=== PATIENT | male | born 1970 | race Caucasian/White ===

== ENCOUNTER → 2020-08-14 09:01 | Outpatient (CLI) | payer OTHER, SELFPAY ==
[2015-10-30 19:56] VITALS: BMI 27.3
[2020-08-17 07:07] LABS: Barley, Whole Grain <0.10 kU/L (Class 0); Beef <0.10 kU/L (Class 0); Gluten <0.10 kU/L (Class 0); Potato, White <0.10 kU/L (Class 0)
[2020-08-17 15:59] LABS: Egg, Whole <0.10 kU/L (Class 0); Milk (Cow) <0.10 kU/L (Class 0)
== END ==
PROVIDERS: Referring Provider Otolaryngology Otolaryngology/Facial Plastic Surgery; Visit Provider Otolaryngology Otolaryngology/Facial Plastic Surgery
DX: T78.40XA Allergy, unspecified, initial encounter (principal)
CPT/HCPCS: 36415; 86003

== ENCOUNTER 2021-06-29 09:21 | Emergency (ER) | payer OTHER, SELFPAY ==
[2021-06-29] VITALS (11 sets, daily range): BP systolic 108–147; BP diastolic 58–79; PULSE 59–87; RESP 14–22; TEMP 36.3–38.4; O2SAT 90–96; BMI 27.0
--- NOTE | 2021-06-29 09:39 | CT_ITS ---
INDICATION: Abdominal Pain EXAMINATION: CT ABDOMEN AND PELVIS WITH CONTRAST - CT Abdomen And Pelvis W/ Contrast Injection TECHNIQUE: Helically acquired images were obtained of the abdomen and pelvis following IV contrast. A radiation dose optimization technique was used for this scan. IV Contrast dosage and agent: 100 cc [id number] Oral contrast: None. COMPARISON: None. FINDINGS: Lower thorax: Consolidative groundglass opacities in the peripheries of the bilateral lower lobes and the visualized left upper lobe. Liver: Normal morphology. Normal parenchyma. No masses. Gallbladder: Normal appearance. No duct dilation. Spleen: Unremarkable. Pancreas: No discrete parenchymal masses. No duct dilation. Adrenal glands: Unremarkable. Kidneys: No cystic or solid masses. No acute findings. No hydronephrosis. GI tract: No significant bowel wall thickening or bowel dilation. Small hiatal hernia. No acute inflammatory changes. Normal appendix. Peritoneum/mesentery/retroperitoneum: No ascites or free air. No masses. No lymphadenopathy. 3.5 x 3.5 x 3.9 cm umbilical hernia containing omental fat. The neck measures 0.9 cm. There are inflammatory changes of the fat within the hernia sac. Pelvis: Bladder is unremarkable. Small right fat-containing femoral hernia. No ascites or free air. No masses. Vasculature: No acute findings. Bones/soft tissues: Mild chronic degenerative wedging of the visualized T9 and T12 vertebral bodies.. No acute findings. CT/Abdomen/Pelvis W IV Cont ONLY IMPRESSION: 1. Omental fat-containing umbilical hernia demonstrates inflammatory changes of the fat within the hernia sac concerning for strangulation. No mechanical bowel obstruction. 2. Visualized lung findings concerning for infectious/inflammatory etiology such as atypical pneumonia. Correlation with COVID status recommended. Electronically Signed: Mark Castro MD at 11:03 EST Tel , Service support ,
--- NOTE | 2021-06-29 09:41 | ED.VIS.GI ---
HPI HPI - GI History of Present Illness Chief Complaint: Abd Pain Narrative Narrative: Patient who denies significant past medical history except for umbilical hernia presents with abdominal pain, cough, and fever. He states his symptoms have been ongoing for the last 8 days or so. Started coughing with phlegm production, and had a fever as high as 100 ?F. He is not vaccinated against Covid. Although he has a known small umbilical hernia, he began having periumbilical abdominal pain. It is worse with coughing. He becomes nauseated and vomits. He denies any blood in his emesis. No problems with dysuria or hematuria. He is mildly constipated. He symptoms, mainly of fever and cough. This is in combination with the abdominal pain that he is having. He denies any chest tightness, or shortness of breath. PFSH PFSH Home Medications hydrocodone-acetaminophen 1 - 2 tab PO Q4H PRN PRN #12 tablet 10/30/15 [Rx Last Taken Unknown] naproxen 500 mg PO BID #20 tab 10/30/15 [Rx Last Taken Unknown] penicillin V potassium 500 mg PO 4X/DAY #40 tab 10/30/15 [Rx Last Taken Unknown] albuterol sulfate [Ventolin HFA] 1 - 2 puff INHALATION Q4H PRN PRN #1 ea 06/29/21 [Rx Last Taken Unknown] dexamethasone [Decadron] 6 mg PO DAILY #10 tab 06/29/21 [Rx Last Taken Unknown] Allergy/AdvReac Type Severity Reaction Status Date / Time ibuprofen Allergy Anaphylaxis Verified 06/29/21 09:22 Social History Smoking Status: Never smoker ROS ROS ED ROS Narrative Constitutional: Positive fever, no chills. HEENT: No sore throat. No neck pain. No loss of vision. No rhinorrhea. No loss of taste or smell. Cardiovascular: No chest pain. No palpitations. No pedal edema. Respiratory: Positive occasionally productive cough, no shortness of breath. Abdominal: Positive periumbilical abdominal pain. Positive nausea. Positive posttussive vomiting. Genitourinary: No dysuria. No hematuria. Musculoskeletal: No myalgias. No arthralgias. Neurologic: No headaches. No dizziness. No lightheadedness. Skin: No rash. No change in color. Psychiatric: No depression. No anxiety. EXAM Physical Exam Narrative Exam Narrative: Afebrile. Vital signs noted. HEENT: Normocephalic. Atraumatic. PERRL, EOMI. Neck soft and supple. No point tenderness or step off. Cardiovascular: Regular rate and rhythm. No murmurs, rubs, or gallops appreciated. Respiratory: No tachypnea. Lungs clear to auscultation bilaterally. Gastrointestinal: Abdomen soft, positive tenderness in periumbilical area, with normoactive bowel sounds. Noted umbilical hernia, reducible. No rebound or guarding. Neurological: Awake. Alert. Nonfocal, nonlateralizing. Skin: No rash. Normal color. No pallor. Musculoskeletal: No pedal edema. Full range of motion extremities. Const Vital Signs: 06/29/21 09:23 06/29/21 10:10 06/29/21 10:35 Temperature 97.4 F L 99.3 F H Temperature Source Temporal Oral Pulse Rate 86 83 83 Respiratory Rate 17 14 22 H Blood Pressure 118/77 108/64 120/58 L Blood Pressure Mean 90 78 78 Pulse Ox 90 92 93 Oxygen Delivery Method Room Air Room Air Nasal Cannula Oxygen Flow Rate (L/min) 3 06/29/21 11:45 06/29/21 12:12 06/29/21 13:00 Temperature 101.1 F H 99.2 F H Temperature Source Oral Oral Pulse Rate 83 83 Respiratory Rate 16 20 H Blood Pressure 137/77 H 147/79 H Blood Pressure Mean 97 101 Pulse Ox 91 92 91 Oxygen Delivery Method Nasal Cannula Nasal Cannula Nasal Cannula Oxygen Flow Rate (L/min) 2 3 3 MDM MDM MDM Narrative Medical decision making narrative: Comprehensive work-up was pursued. He was swabbed for Covid. He is Covid positive. CBC is grossly normal, white count 5.4, hemoglobin stable at 13.9. Electrolyte panel shows sodium slightly low 133, glucose appropriately elevated at 111 with a normal anion gap of 9. Urinalysis is negative. Pulse ox was 90 to 91% on room air upon arrival. He was ambulated and his pulse ox did drop into the 80s. He was placed on nasal cannula and ambulated, and remains not hypoxic. CT of the abdomen pelvis does show an omental strangulation with inflammatory changes and an umbilical hernia. I spoke with Dr. Mckeon who saw the patient in the emergency department and reduced his umbilical hernia. Patient had been given morphine and ondansetron previously. He did require another dose of ondansetron. His chest x-ray showed no acute process. However, on his CT the lung portion showed inflammatory changes and infiltrates consistent with Covid. Given his hypoxia, he was administered dexamethasone 6 mg intravenously. He does qualify for home O2. I discussed patient with social work. They have an oxygen concentrator coming from [place]. Patient will remain in the emergency department until his oxygen concentrator arrives. He will then be discharged to follow-up with his primary care physician. He was referred to the on-call physician. I will write him a prescription for oral steroids for the next week to 10 days. I will also write him for an albuterol inhaler. Return instructions were reviewed. Disposition is discharged home in stable condition. Lab Data Attestation: I reviewed the patient's lab results. Labs: Laboratory Results - last 24 hr 06/29/21 06/29/21 06/29/21 09:48 09:48 11:06 WBC 5.4 RBC 4.59 L Hgb 13.9 Hct 39.1 L MCV 85.2 MCH 30.3 MCHC 35.5 RDW Std Deviation 38.0 RDW Coeff of Maty 12.2 Plt Count 189 MPV 8.3 Immature Gran % (Auto) 0.200 Neut % (Auto) 83.6 H Lymph % (Auto) 10.5 L [place] % (Auto) 5.7 Eos % (Auto) 0.0 Baso % (Auto) 0.0 Absolute Neuts (auto) 4.5 Absolute Lymphs (auto) 0.57 L Nucleated RBC % 0 Platelet Estimate ADEQUATE RBC Morphology NORM C+C Sodium 133 L Potassium 3.7 Chloride 98 Carbon Dioxide 26.0 Anion Gap 9 BUN 14 Creatinine 0.85 Estim Creat Clear Calc 98.35 Est GFR (MDRD) Af Amer 122 Est GFR (MDRD) Non-Af 101 BUN/Creatinine Ratio 16.5 Glucose 111 H Calcium 8.2 L Total Bilirubin 0.50 AST 38 H ALT 34 Alkaline Phosphatase 62 Total Protein 7.0 Albumin 2.6 L Globulin 4.4 H Albumin/Globulin Ratio 0.6 L Lipase 137 Urine Color Yellow Urine Clarity Clear Urine pH 6.5 Ur Specific [place] 1.005 Urine Protein 15 H Urine Glucose (UA) Normal Urine Ketones 50 H Urine Occult Blood 10 H Urine Nitrite Negative Urine Bilirubin Negative Urine Urobilinogen Normal Ur Leukocyte Esterase Negative Urine RBC 0 SEEN Urine WBC 0 SEEN Ur Squamous Epith Cells 0 SEEN Urine Bacteria 0 SEEN Urine Mucus 0 SEEN Radiography Diagnostic Testing: Clinical Impression(s) from Imaging Studies Abdomen/Pelvis CT 06/29/21 09:39 IMPRESSION: 1. Omental fat-containing umbilical hernia demonstrates inflammatory changes of the fat within the hernia sac concerning for strangulation. No mechanical bowel obstruction. 2. Visualized lung findings concerning for infectious/inflammatory etiology such as atypical pneumonia. Correlation with COVID status recommended. Electronically Signed: Mark Castro MD at 11:03 EST Tel , Service support , Chest X-Ray 06/29/21 11:05 IMPRESSION: No acute pulmonary process Electronically Signed: Zen Ramires MD at 11:20 EST , Service support , Discharge Plan Triage Chief Complaint: Abd Pain ED Provider: Myles Oconnell Dx/Rx/DC Orders Clinical Impression: COVID-19, Umbilical hernia, Hypoxia Instructions: Coronavirus Disease 2019 (COVID-19): Caring for Yourself or Others, COVID-19: Lying in a Prone Position (Proning), ED Hernia (Adult) Prescriptions: New dexamethasone [Decadron] 6 mg tablet 6 mg PO DAILY Qty: 10 RF: 0 albuterol sulfate [Ventolin HFA] 90 mcg/actuation HFA aerosol inhaler 1 - 2 puff inhalation Q4H PRN PRN (Reason: Wheezing) Qty: 1 RF: 0 No Action hydrocodone-acetaminophen 1 TABLET tablet 1 - 2 tab PO Q4H PRN PRN (Reason: Pain) Qty: 12 RF: 0 penicillin V potassium 500 MG tablet 500 mg PO 4X/DAY Qty: 40 RF: 0 naproxen 500 MG tablet 500 mg PO BID Qty: 20 RF: 0 Primary Care Provider: Care Physician,No Primary Referrals: Jason Mckeon MD [STAFF PHYSICIAN] - 07/27/21 (Umbilical Hernia Repair) Ange Nelson MD [STAFF PHYSICIAN] - 07/05/21 Care Physician,No Primary [Primary Care Provider] - Disposition Disposition: Home, Self Care
[2021-06-29] MEDS: 0.9% Normal Saline 1,000 ML 1000 ML IV (09:59)
[2021-06-29] MEDS: Ondansetron 4 MG/2 ML Vial IV ×2 (10:00→14:15)
[2021-06-29] MEDS: Morphine 4 MG/ML Syringe IV (10:05)
[2021-06-29 10:08] LABS: Absolute Lymphocyte Count 0.57 X10^3/uL (0.83-4.51); Absolute Neutrophil Count 4.5 X10^3/uL (2.0-7.7); Hematocrit 39.1 % (40-54); Hemoglobin 13.9 g/dL (13.0-16.5); Lymphocyte # 0.57 X10^3/ul (0.83-4.51); Lymphocyte % 10.5 % (19-41); Mean Corp Hgb Conc 35.5 g/dL (32-36); Mean Corpuscular Hgb 30.3 pg (27.0-32.0); Mean Corpuscular Volume 85.2 fL (80-94); Mean Platelet Vol. 8.3 fl (6.2-12.0); Monocyte# 0.31 X10^3/uL; Monocyte% 5.7 % (0-10); NRBC Flagged by Analyzer 0 % (0-5); Neutrophil # 4.54 X10^3/uL (2.7-7.7); Neutrophil % 83.6 % (47-70); POSITIVE DIFFERENTIAL YES; Platelet Count 189 K/mm3 (150-450); RBC Distribution Width CV 12.2 % (11.6-14.6); Red Blood Count 4.59 M/mm3 (4.6-6.2); White Blood Count 5.4 K/mm3 (4.4-11.0)
[2021-06-29 10:09] LABS: Differential Indicated SCAN CRITERIA MET
[2021-06-29 10:23] LABS: ALB/GLOB Ratio 0.6 RATIO (0.9-2.4); AST(SGOT) 38 U/L (15-37); Alanine Aminotransfer ALT/SGPT 34 U/L (16-61); Albumin, Serum 2.6 g/dL (3.2-5.0); Alkaline Phosphatase 62 U/L (45-117); Anion Gap 9 (5-15); BUN 14 mg/dL (7-18); BUN/Creat Ratio 16.5 RATIO (10-20); Calcium,Total 8.2 mg/dL (8.5-10.1); Chloride 98 mmol/L (98-107); Creatinine, Serum 0.85 mg/dL (0.70-1.30); EST Glomerular Filtration Rate 101 mL/min (>60); Est Glom Filt Rate - Afr Amer 122 mL/min (>60); Estimated Creatinine Clearance 98.35 ml/min; Globulin 4.4 g/dL (2.2-4.2); Glucose 111 mg/dL (74-106); Lipase 137 U/L (73-393); Potassium 3.7 mmol/L (3.5-5.1); Sodium Level 133 mmol/L (136-145)
[2021-06-29 10:31] LABS: Platelet Estimate ADEQUATE (ADEQ); Red Cell Morphology NORM C+C NORMAL (NORM C&C)
--- NOTE | 2021-06-29 11:05 | RAD_ITS ---
STUDY: X-RAY CHEST REASON FOR EXAM: Male, 50 years old. Fever and cough TECHNIQUE: Single AP portable view of the chest. COMPARISON: None. FINDINGS: EKG leads overlie the chest Lungs are expanded with chronic interstitial changes, no superimposed acute pulmonary process. Normal size heart. Normal mediastinum and nelly. Normal visualized pulmonary arteries. Normal visualized aortic arch and descending thoracic aorta. Normal visualized thoracic spine. Normal visualized ribs, clavicles, and shoulders. There is no demonstrated abnormality of the visualized soft tissue structures of the upper abdomen. RAD/Chest 1 View (Portable) IMPRESSION: No acute pulmonary process Electronically Signed: Zen Ramires MD at 11:20 EST , Service support ,
[2021-06-29 11:18] LABS: Bacteria 0 SEEN /hpf (None Seen); Mucous, Urine 0 SEEN /hpf (<or=2+); Red Blood Cells-Urine 0 SEEN /hpf (0-5); Squamous Epithelial Cells - UA 0 SEEN /hpf (0-5); White Blood Cells 0 SEEN /hpf (0-5)
[2021-06-29 11:19] LABS: Color, Urine Yellow (Yellow); Glucose, Dipstick Normal (Normal); Ketone-Dipstick 50 mg/dl (Negative); Leukocyte Esterase-Dipstick Negative /ul (Negative); Nitrite-Dipstick Negative (Negative); Occult Blood-Urine 10 /ul (Negative); Protein-Dipstick 15 mg/dl (Negative); Specific Gravity, Urine 1.005 (1.002-1.030); Urine Bilirubin Dipstick Negative (Negative); Urine Clarity Clear (Clear); Urine Urobilinogen Normal (Normal); Urine pH 6.5 (5.0 - 8.0)
[2021-06-29] MEDS: dexAMETHasone 10 MG/ML Vial 6 MG IV (11:59)
--- NOTE | 2021-06-29 12:20 | CON.PCM.SX_ITS ---
Assessment & Plan Assessment/Plan (1) Umbilical hernia: QUALIFIERS: Obstruction and gangrene presence: without obstruction or gangrene Qualified Code(s): K42.9 - Umbilical hernia without obstruction or gangrene PLAN: Patient has small umbilical hernia which I was able to reduce. Due to the Covid diagnosis I recommended the patient continue to reduce his hernia manually and repair this after Covid has subsided. I would recommend returning to my office in 1 month to discuss elective surgery. If there is an emergency between now and then he would have to have emergency surgery and this would be high risk. Patient understands and is willing to proceed with this plan. Jason Mckeon MD Pager: [facility] [address] [place] [address], [address] [place] [address] Office: HPI Consult Data Date of Consult: 06/29/21 HPI Narrative HPI Narrative: GAMALIEL ROLDAN, is a 50 M who presents with pain. Patient reports a longstanding history of umbilical hernia but over the last week he has been coughing a lot more due to Covid and it has been hurting a lot more. PFSH Home Medications hydrocodone-acetaminophen 1 - 2 tab PO Q4H PRN PRN #12 tablet 10/30/15 [Rx Last Taken Unknown] naproxen 500 mg PO BID #20 tab 10/30/15 [Rx Last Taken Unknown] penicillin V potassium 500 mg PO 4X/DAY #40 tab 10/30/15 [Rx Last Taken Unknown] Allergy/AdvReac Type Severity Reaction Status Date / Time ibuprofen Allergy Anaphylaxis Verified 06/29/21 09:22 Social History Smoking Status: Never smoker ROS Constitutional Constitutional: Reports fatigue; Denies anorexia Eyes Eyes: Denies blurry vision ENT HEENT: Denies abnormal hearing Cardiovascular Cardiovascular: Reports chest pain Respiratory/Chest Respiratory/Chest: Reports cough and dyspnea Gastrointestinal Gastrointestinal: Reports abdominal pain Physical Exam Const alert and oriented x3 General Appearance: ill appearing HEENT normocephalic Eyes PERRL Resp normal respiratory effort Auscultation: diminished lung sounds Cardio Rate: regular rate GI soft to palpation Palpation: tender and hernia umbilical Lab / Micro Data Result Diagrams: 06/29/21 09:48 11/24/21 09:48 Labs: Laboratory Results - last 24 hr 06/29/21 09:48: WBC 5.4, RBC 4.59 L, Hgb 13.9, Hct 39.1 L, MCV 85.2, MCH 30.3, MCHC 35.5, RDW Std Deviation 38.0, RDW Coeff of Maty 12.2, Plt Count 189, MPV 8.3, Immature Gran % (Auto) 0.200, Neut % (Auto) 83.6 H, Lymph % (Auto) 10.5 L, [place] % (Auto) 5.7, Eos % (Auto) 0.0, Baso % (Auto) 0.0, Absolute Neuts (auto) 4.5, Absolute Lymphs (auto) 0.57 L, Nucleated RBC % 0, Platelet Estimate ADEQUATE, RBC Morphology NORM C+C 06/29/21 09:48: Sodium 133 L, Potassium 3.7, Chloride 98, Carbon Dioxide 26.0, Anion Gap 9, BUN 14, Creatinine 0.85, Estim Creat Clear Calc 98.35, Est GFR (MDRD) Af Amer 122, Est GFR (MDRD) Non-Af 101, BUN/Creatinine Ratio 16.5, Glucose 111 H, Calcium 8.2 L, Total Bilirubin 0.50, AST 38 H, ALT 34, Alkaline Phosphatase 62, Total Protein 7.0, Albumin 2.6 L, Globulin 4.4 H, Albumin/Globulin Ratio 0.6 L, Lipase 137 06/29/21 11:06: Urine Color Yellow, Urine Clarity Clear, Urine pH 6.5, Ur Specific [place] 1.005, Urine Protein 15 H, Urine Glucose (UA) Normal, Urine Ketones 50 H, Urine Occult Blood 10 H, Urine Nitrite Negative, Urine Bilirubin Negative, Urine Urobilinogen Normal, Ur Leukocyte Esterase Negative, Urine RBC 0 SEEN, Urine WBC 0 SEEN, Ur Squamous Epith Cells 0 SEEN, Urine Bacteria 0 SEEN, Urine Mucus 0 SEEN Micro: Microbiology 06/29/21 09:48 Nasal Secretion SARS-CoV-2 Antigen (Rapid) - Final SARS-CoV-2 (COVID 19) Radiology Impression Abdomen/Pelvis CT 06/29/21 09:39 IMPRESSION: 1. Omental fat-containing umbilical hernia demonstrates inflammatory changes of the fat within the hernia sac concerning for strangulation. No mechanical bowel obstruction. 2. Visualized lung findings concerning for infectious/inflammatory etiology such as atypical pneumonia. Correlation with COVID status recommended. Electronically Signed: Mark Castro MD at 11:03 EST Tel , Service support , Chest X-Ray 06/29/21 11:05 IMPRESSION: No acute pulmonary process Electronically Signed: Zen Ramires MD at 11:20 EST , Service support ,
[2021-06-29] MEDS: Acetaminophen 500 MG Tablet 1000 MG PO (12:55)
--- NOTE | 2021-06-29 13:04 | CM.ED ---
SOCIAL WORK Referral Source: Dr. Oconnell Reason for Consult: COVID Positive patient, requiring home O2 Discussed need for home O2 with physician and patient. Referral for home O2 called and faxed to [facility]. Patient requires 3L. Awaiting provider to process referral at this time. Irma Mae, SALES RECEPTIONIST, [employer]
--- NOTE | 2021-06-29 14:30 | CM.ED ---
Call to [facility] to check on status of O2. Worker reports processing referral.
--- NOTE | 2021-06-29 15:46 | CM.ED ---
Call to [facility] to check on status. Worker reports order has been processed and Giancarlo jones will arrive around 5pm. Staff updated.
--- NOTE | 2021-06-29 16:56 | ED.RN ---
educational technology coordinator brought medications from pharmacy. This RN gave medications to patients in patients room.
--- NOTE | 2021-06-29 17:50 | CM.ED ---
Call to [facility] to check on status of home O2, worker reports tech is doing a set up in [place], [place] he will be en route to ER after set up. Staff updated.
--- NOTE | 2021-06-29 18:09 | CM.ED ---
Call from lindsay Hurst who reports ETA 30 minutes. Staff updated.
--- NOTE | 2021-06-29 18:53 | CM.ED ---
Portable O2 tank delivered by [employer] at this time.
--- NOTE | 2021-06-29 19:03 | CM.ED ---
Case management notified for follow up.
--- NOTE | 2021-06-29 19:05 | ED.RN ---
patient sent home with home oxygen. patient has been educated by respiratory therapist about home pulse ox and oxygen.
--- NOTE | 2021-06-29 19:06 | ED.RN ---
patient and spouse has been informed that oxygen concentrator is being delivered to their house. instructions and phone number for more information has been left at the door. patient and spouse has been informed to call if they need further help or questions. patient and spouse have no further questions at this time.
--- NOTE | 2021-07-05 10:56 | CASEMGMT ---
[facility] ED COVID Home O2 Follow-up: This [facility] contacted pt via phone for follow-up. Pt states he is feeling better and has stopped wearing his home O2. States his PO this morning was 93% and denies any c/o SOB. Pt states he is able to take deeper breathes without severe coughing. States he has a random fever and tires easily. Discussed medications including decadron (has three pills left) and albuterol. Pt asked about getting more of the decadron. Educated pt that once he completes the remaining pills he will not need any additional. Pt states he continues to use the albuterol. Discussed follow-up. Pt states he has contacted them but do not want to see him for a couple more weeks. Pt states he feels he has a sinus infection and plans to go to an urgent care to have this addressed. Reviewed quarantine with pt stating he had a start of symptoms on 06/21/21 which would indicate today as the completion of a 14 day quarantine period. Pt asked about O2 tank refill and merchandise pickup/receiving associate of equipment. Explained process of obtaining a physician order stating he no longer is in need of the O2 and contacting [employer] to arrange for portable tanks to be replaced. Pt expressed understanding and states he has [employer]'s phone number to contact them to make needed arrangements. Pt denies any further questions or concerns at this time. Kit Ho RN CM
== END 2021-06-29 19:10 | disposition home or self-care (01) ==
PROVIDERS: Emergency Provider Emergency Medicine
DX: U07.1 COVID-19 (principal); K42.9 Umbilical hernia without obstruction or gangrene; R09.02 Hypoxemia
CPT/HCPCS: 71045; 74177; 80053; 81001; 83690; 85025; 87426; 96361; 96374; 96375; 96376; 99285; Q9967; A4216; J2405

== ENCOUNTER 2021-07-01 10:44 | Emergency (ER) | payer OTHER, SELFPAY ==
[2021-07-01 10:45] VITALS: BP 119/83; PULSE 69; RESP 18; TEMP 36.4; O2SAT 95; BMI 26.9
[2021-07-01 10:48] VITALS: BP 119/83; PULSE 69; RESP 18; TEMP 36.4; O2SAT 93
[2021-07-01 10:58] VITALS: O2SAT 93; O2SAT 95
[2021-07-01 10:59] VITALS: O2SAT 92
--- NOTE | 2021-07-01 12:20 | CM.ED ---
SW Note Referral Source: Case Find Referral Reason: No PCP SW met with patient. Patient confirmed no PCP. SW provided them with 2020 Healthcare Provider Directory. No further issues or concerns voiced. Plan: Provided PCP list Katarina JULES
--- NOTE | 2021-07-01 12:37 | EDS_ITS ---
HPI History of Present Illness Chief Complaint: Shortness of Breath Informant: patient Narrative Narrative: 50-year-old male on day 11 of COVID-19 resents to the emergency room out of concern for hypoxemia. Patient was seen in the emergency room several evenings ago and was discharged home on home oxygen. He states that he received very little instruction on how many liters he was to be wearing. His home pulse oximeter was reading in the 80s today and he came to emergency. He states he does not feel necessarily particular short of breath. He reports that he does get some dyspnea with exertion. [facility] Medical History COVID Home Medications hydrocodone-acetaminophen 1 - 2 tab PO Q4H PRN PRN #12 tablet 10/30/15 [Rx Last Taken Unknown] naproxen 500 mg PO BID #20 tab 10/30/15 [Rx Last Taken Unknown] penicillin V potassium 500 mg PO 4X/DAY #40 tab 10/30/15 [Rx Last Taken Unknown] albuterol sulfate [Ventolin HFA] 1 - 2 puff INHALATION Q4H PRN PRN #1 ea 06/29/21 [Rx Last Taken Unknown] dexamethasone [Decadron] 6 mg PO DAILY #10 tab 06/29/21 [Rx Last Taken Unknown] Allergy/AdvReac Type Severity Reaction Status Date / Time ibuprofen Allergy Anaphylaxis Verified 07/01/21 10:48 Social History (Updated 07/01/21 @ 12:[address] Kyler Dow DO) current gender identity: male Smoking Status: Never smoker ROS ROS ED Constitutional Constitutional ED: Reports chills and fever(s); Denies weight loss Eyes Eyes: Denies change in vision or diplopia ENT ENT ED: Denies ear pain, rhinorrhea or sore throat Cardiovascular Cardiovascular: Denies chest pain, orthopnea, palpitations or racing heartbeat Respiratory/Chest Respiratory/Chest: Reports cough and dyspnea; Denies orthopnea Gastrointestinal Gastrointestinal: Reports abdominal pain; Denies diarrhea, nausea or vomiting Genitourinary Genitourinary ED: Denies dysuria, hematuria or urinary frequency Musculoskeletal Musculoskeletal: Denies arthralgias or myalgias Integumentary Denies abscess or rash Neurologic Neurologic: Denies headache(s) or weakness Psychiatric Psychiatric: Denies anxiety, depression, suicidal ideation or suicidal thoughts Endocrine Endocrinology: Denies polydipsia, polyphagia or polyuria Allergic/Immunologic Allergic/Immunologic ED: Denies mouth swelling, tongue swelling or urticaria EXAM Physical Exam Const Vital Signs: 07/01/21 10:45 07/01/21 10:48 07/01/21 10:58 Temperature 97.6 F L 97.6 F L Temperature Source Temporal Temporal Pulse Rate 69 69 Respiratory Rate 18 18 Respiratory Effort Blood Pressure 119/83 H 119/83 H Blood Pressure Mean 95 95 Pulse Ox 95 93 93 Oxygen Delivery Method Nasal Cannula Nasal Cannula Nasal Cannula Oxygen Flow Rate (L/min) 2 2 07/01/21 10:59 Temperature Temperature Source Pulse Rate Respiratory Rate Respiratory Effort Non-Labored Blood Pressure Blood Pressure Mean Pulse Ox Oxygen Delivery Method Nasal Cannula Oxygen Flow Rate (L/min) 2 Positive well nourished and well developed General Appearance ED: well developed HEENT Reports normocephalic, head/scalp atraumatic, TM's clear and moist mucous membranes atraumatic Tympanic Membrane ED: Yes TM's clear Eyes PERRL and EOMs intact bilaterally Neck no lymphadenopathy, supple and no JVD Resp normal respiratory effort and clear to auscultation bilaterally Cardio regular rate, regular rhythm and no murmurs GI normal to inspection, nondistended, normoactive bowel sounds and non-tender GI Narrative: Reducible umbilical hernia Palpation: soft Back/Spine no CVA tenderness and normal ROM Extremity normal to inspection General Extremety ED: Negative for edema General Extremity: Negative for edema Neuro oriented x3 and CN's II-XII intact bilaterally Sensorium / Orientation: alert Motor Exam: strength 5/5 throughout Psych mental status grossly normal Mood & Affect: Negative for depressed or tearful Skin no rashes or lesions noted and no wounds MDM MDM MDM Narrative Medical decision making narrative: While on 2-1/2 L the patient's pulse ox on our machine is reading 93 to 94%. There are times where his home pulse oximeter reads the same and other times were reads 4 points lower. I think the patient is safe for discharge. He is already on steroids. He will continue home care. Discharge Plan Triage Chief Complaint: Shortness of Breath ED Provider: Kyler Dow Dx/Rx/DC Orders Clinical Impression: COVID-19, Umbilical hernia, Hypoxia Instructions: Coronavirus Disease 2019 (COVID-19): Caring for Yourself or Others Prescriptions: No Action hydrocodone-acetaminophen 1 TABLET tablet 1 - 2 tab PO Q4H PRN PRN (Reason: Pain) Qty: 12 RF: 0 penicillin V potassium 500 MG tablet 500 mg PO 4X/DAY Qty: 40 RF: 0 naproxen 500 MG tablet 500 mg PO BID Qty: 20 RF: 0 dexamethasone [Decadron] 6 mg tablet 6 mg PO DAILY Qty: 10 RF: 0 albuterol sulfate [Ventolin HFA] 90 mcg/actuation HFA aerosol inhaler 1 - 2 puff inhalation Q4H PRN PRN (Reason: Wheezing) Qty: 1 RF: 0 Primary Care Provider: Care Physician,No Primary Referrals: Care Physician,No Primary [Primary Care Provider] - Disposition Disposition: Home, Self Care
[2021-07-01 12:56] VITALS: BP 121/76; PULSE 79; RESP 16; O2SAT 93
== END 2021-07-01 12:56 | disposition home or self-care (01) ==
PROVIDERS: Emergency Provider Emergency Medicine
DX: U07.1 COVID-19 (principal); K42.9 Umbilical hernia without obstruction or gangrene; R09.02 Hypoxemia
CPT/HCPCS: 99282

== ENCOUNTER 2023-03-10 08:10 | Emergency (ER) | payer OTHER, SELFPAY ==
[2023-03-10 08:12] VITALS: BP 145/84; PULSE 77; RESP 18; TEMP 35.9; O2SAT 98; BMI 28.2
--- NOTE | 2023-03-10 09:51 | EX.ED.VISEXT ---
HPI History of Present Illness Chief Complaint: Bite Narrative Narrative: 52-year-old male with insect sting to the left medial thigh. He does not know what it was. It happened quickly. Unlikely to be a tick bite. Patient states that initially it swelled up and was painful. He was put on doxycycline a couple of days ago and he states that the pain is much better and the size has gone down however he noticed some redness outside the marking and came to have an evaluation. Patient's had no stomach signs or symptoms. No history of MRSA. ROS ROS ED Constitutional Constitutional ED: Denies chills, fever(s) or sweats Eyes Eyes: Denies blurry vision or change in vision ENT ENT ED: Denies ear pain or sore throat Cardiovascular Cardiovascular: Denies chest pain, palpitations or racing heartbeat Respiratory/Chest Respiratory/Chest: Denies cough, dyspnea or sputum Gastrointestinal Gastrointestinal: Denies abdominal pain, constipation, diarrhea, nausea or vomiting Genitourinary Genitourinary ED: Denies dysuria, hematuria or urinary frequency Musculoskeletal Musculoskeletal: Denies arthralgias, myalgias or neck pain Integumentary Reports rash; Denies abscess or Abrasions Neurologic Neurologic: Denies headache(s), paresthesias or weakness Psychiatric Psychiatric: Denies anxiety, depression, suicidal ideation or suicidal thoughts Endocrine Endocrinology: Denies polydipsia or polyuria [facility] Medical History COVID Home Medications hydrocodone-acetaminophen 5-325mg 5mg-325mg 1 - 2 tab PO Q4H PRN PRN Pain ##12 10/30/15 [Rx Last Taken Unknown] naproxen 500 mg tablet 500 mg PO BID #20 tabs 10/30/15 [Rx Last Taken Unknown] penicillin V potassium 500 mg tablet 500 mg PO 4X/DAY #40 tabs 10/30/15 [Rx Last Taken Unknown] albuterol sulfate 90 mcg/actuation aerosol inhaler (Ventolin HFA) 1 - 2 puff inhalation Q4H PRN PRN Wheezing #1 ea 06/29/21 [Rx Last Taken Unknown] dexamethasone 6 mg tablet (Decadron) 6 mg PO DAILY #10 tabs 06/29/21 [Rx Last Taken Unknown] Allergy/AdvReac Type Severity Reaction Status Date / Time ibuprofen Allergy Anaphylaxis Verified 07/01/21 10:48 Social History (Updated 07/01/21 @ 12:[address] Kyler Dow, DO) Smoking Status: Never smoker EXAM Physical Exam Const Vital Signs: 03/10/23 08:12 Temperature 96.6 F L Temperature Source Temporal Pulse Rate 77 Respiratory Rate 18 Blood Pressure 145/84 H Blood Pressure Mean 104 Pulse Ox 98 Oxygen Delivery Method Room Air Positive well nourished General Appearance ED: NAD HEENT Reports moist mucous membranes Resp normal respiratory effort Cardio regular rate and regular rhythm Neuro oriented x3 and CN's II-XII intact bilaterally Sensorium / Orientation: alert Motor Exam: strength 5/5 throughout Psych mental status grossly normal Skin Skin Narrative: There is a 3 cm area of erythema on the left medial thigh proximally. There is no fluctuance to this. It is minimally tender. The area that was marked previously has some erythema below it. Its not as red as the area of inflammation. No proximal lymphangitic streaking or lymphadenopathy. MDM MDM MDM Narrative Medical decision making narrative: Patient with cellulitis to the left proximal thigh. There is no fluctuance to this. He states it already drained and feels better. He was more concerned that the redness had descended down his leg however this looks like dependent edema/erythema from the site above and its not tender having any crepitance in that area. Patient again has no systemic signs or symptoms. Clinically he is improving. I recommended that he do sitz bath's which she was not told to do before. He will watch this and return for any new or worsening symptoms. He is to continue his antibiotics. Impression: 1. Cellulitis left thigh Discharge Plan Triage Chief Complaint: Bite ED Provider: Celestino Jackson Dx/Rx/DC Orders Instructions: ED Cellulitis, ED Insect Bite Prescriptions: No Action hydrocodone-acetaminophen 1 TABLET tablet 1 - 2 tab PO Q4H PRN PRN (Reason: Pain) Qty: 12 0RF penicillin V potassium 500 MG tablet 500 mg PO 4X/DAY Qty: 40 0RF naproxen 500 MG tablet 500 mg PO BID Qty: 20 0RF dexamethasone [Decadron] 6 mg tablet 6 mg PO DAILY Qty: 10 0RF albuterol sulfate [Ventolin HFA] 90 mcg/actuation HFA aerosol inhaler 1 - 2 puff inhalation Q4H PRN PRN (Reason: Wheezing) Qty: 1 0RF Primary Care Provider: Care Physician,No Primary Referrals: Care Physician,No Primary [Primary Care Provider] - Wound,Center [Non-Staff] - 3-5 Days if not improving Disposition Disposition: Home, Self Care
== END 2023-03-10 10:06 | disposition home or self-care (01) ==
PROVIDERS: Emergency Provider Student in an Organized Health Care Education/Training Program; Visit Provider Student in an Organized Health Care Education/Training Program
DX: L03.116 Cellulitis of left lower limb (principal); S70.362A Insect bite (nonvenomous), left thigh, initial encounter; W57.XXXA Bitten or stung by nonvenomous insect and other nonvenomous arthropods, initial encounter
CPT/HCPCS: 99282

== ENCOUNTER 2024-09-04 11:39 | Emergency (ER) | payer OTHER, SELFPAY ==
[2024-09-04 11:40] VITALS: BP 137/104; PULSE 62; RESP 14; TEMP 36.2; O2SAT 98; BMI 28.1
--- NOTE | 2024-09-04 12:11 | EX.ED.DYSGE1 ---
HPI <SHIRIN Trujillo - Last Filed: 09/04/24 14:09> History of Present Illness Chief Complaint: Chest Other Narrative Narrative: Patient is a 54-year-old male with no significant medical history, recent hernia surgery 1 month ago, patient still on light duty. Patient was working when he slipped on ice, landing on his left arm which was closed in by his left ribs. He states he did not get winded on cells. He is still having some discomfort and is here for evaluation. PFSH <SHIRIN Trujillo - Last Filed: 09/04/24 14:09> [facility] Medical History COVID Home Medications ?Medication ?Instructions ?Recorded ?Last Taken ?Type hydrocodone-acetaminophen 5-325mg 1 - 2 tab PO Q4H PRN PRN Pain ##12 10/30/15 Unknown Rx 5mg-325mg naproxen 500 mg tablet 500 mg PO BID #20 tabs 10/30/15 Unknown Rx penicillin V potassium 500 mg 500 mg PO 4X/DAY #40 tabs 10/30/15 Unknown Rx tablet albuterol sulfate 90 mcg/actuation 1 - 2 puff inhalation Q4H PRN PRN 06/29/21 Unknown Rx aerosol inhaler (Ventolin HFA) Wheezing #1 ea dexamethasone 6 mg tablet 6 mg PO DAILY #10 tabs 06/29/21 Unknown Rx (Decadron) Allergy/AdvReac Type Severity Reaction Status Date / Time ibuprofen Allergy Anaphylaxis Verified 09/04/24 11:45 Social History (Updated 07/01/21 @ 12:[address] Kyler Dow, DO) Smoking Status: Never smoker ROS <SHIRIN Trujillo - Last Filed: 09/04/24 14:09> ROS ED ROS Narrative Constitutional: Negative for fever, chills, weight loss, weakness Eyes: Negative for vision loss, vision change, double vision ENT: Negative for any sore throat, ear pain, congestion Cardiovascular: Negative for any chest pain, tightness, palpitations Respiratory: Negative for any cough, sputum production, hemoptysis, dyspnea, dyspnea on exertion, orthopnea Gastrointestinal: Negative for any abdominal pain, nausea, vomiting, diarrhea, constipation, blood in stool, blood in vomit : Negative for any urinary frequency, dysuria, retention, blood in urine Muscle skeletal: Negative for any neck pain, back pain. Positive for left rib pain. Neurological: Negative for any headache, syncope, dizziness Skin: Negative for any rashes, itching, abrasions, lacerations Psychiatric: Negative for any depression, anxiety, stress, suicidal ideation, homicidal ideation Hematologic: Negative for any excessive bruising, easy bleeding EXAM <SHIRIN Trujillo - Last Filed: 09/04/24 14:09> Physical Exam Narrative Exam Narrative: Vital signs reviewed. HEET: Head normocephalic atraumatic, TMs clear bilaterally. Posterior pharynx is clear, moist mucous membranes. Nares clear bilaterally. Neck: Supple with no lymphadenopathy or tenderness. No signs of meningismus. Cardiac: Regular rate and rhythm no murmurs gallops or rubs, equal peripheral pulses bilaterally. Respiratory: Lungs clear to auscultation bilaterally. Patient does have some left lateral and anterior chest wall tenderness. Abdomen: Soft, nontender, nondistended. No abdominal bruit or pulsatile masses. No hepatosplenomegaly Extremities: No peripheral edema, no signs of gross trauma or deformity. Active full range of motion of all extremities. Neuro: Cranial nerves II through XII intact, no focal neurological deficits. Skin: Clean dry and intact with no rash, purpura, petechiae, vesicles or pustules. Backs/flank: No CVA tenderness, no midline spinal tenderness, no deformity. Psych: Normal mood and affect. No SI, HI or acute psychosis. Const Vital Signs: 09/04/24 11:40 09/04/24 12:49 09/04/24 13:34 Temperature 97.1 F L 98.0 F Temperature Source Temporal Pulse Rate 62 76 Respiratory Rate 14 18 Respiratory Effort Normal Non-Labored Blood Pressure 137/104 H 129/64 H Blood Pressure Mean 115 85 Pulse Ox 98 99 Oxygen Delivery Method Room Air <Dr. Mo Cantrell MD - Last Filed: 09/04/24 22:36> Physical Exam Const Vital Signs: 09/04/24 11:40 09/04/24 12:49 09/04/24 13:34 Temperature 97.1 F L 98.0 F Temperature Source Temporal Pulse Rate 62 76 Respiratory Rate 14 18 Respiratory Effort Normal Non-Labored Blood Pressure 137/104 H 129/64 H Blood Pressure Mean 115 85 Pulse Ox 98 99 Oxygen Delivery Method Room Air [facility] <SHIRIN Trujillo - Last Filed: 09/04/24 14:09> [facility] Treatment and Re-Evaluation :: Differential diagnosis includes however is not limited to: Rib fracture, traumatic pneumothorax, rib contusion, chest wall strain, costochondritis Patient appears generally well, vital signs are stable, patient is nontoxic-appearing. Presenting to the emergency department with complaints of left rib pain after mechanical fall while at work. The fall happened approximate 11 AM. Patient will receive x-rays of the left ribs, patient was offered Tylenol however refused at this time. This is a workers comp injury. All radiologic examinations were read, reviewed by the emergency department attending. From these reads, a plan of care will be put in place. X-rays of the left rib series was negative. Patient was educated regarding deep breathing exercises. Patient is currently on light duty for his recent surgery for 2 more weeks. No change needs to be added. All proper paperwork was filled out. Instructed to return for any worsening pain, fever chills nausea vomiting. Patient agreeable with this plan, stable for discharge <Dr. Mo Cantrell MD - Last Filed: 09/04/24 22:36> [facility] Narrative Medical decision making narrative: I have personally performed a face to face assessment of the patient and have reviewed the [facility] Note. I performed a substantive portion of the visit including all aspects of the following. My escamilla findings include: History is slipped on ice, with left upper extremity abducted and against his chest wall, landed against it injuring his left anterolateral chest wall but not his arm. No dyspnea, no other injury. No abdominal pain, nausea, vomiting. Exam is splints with deep inspiration or certain movements, but lateral compression of the rib cage is without pain. He does have multifocal tenderness anterior lateral left ribs, without crepitance, subcutaneous emphysema, step-off. Equal breath sounds bilaterally, no respiratory distress. Sternum nontender. Spine nontender. Medical Decison Making 5 view x-ray series of the left rib cage including PA chest normal on my interpretation without evidence of displaced fracture, pneumothorax, pulmonary contusion. Radiology in agreement. Patient reassured, he is offered analgesics and prescriptions, he declines all. We discussed taking frequent deep inspirations to prevent pneumonia, we discussed signs and symptoms of pulmonary contusion and reasons to return to the ER. Other additions or changes: [None] Discharge Plan Triage Chief Complaint: Chest Other ED Midlevel Provider: Heron Gonzalez ED Provider: Mo Cantrell Dx/Rx/DC Orders Clinical Impression: Contusion of left chest wall, Fall from slipping on ice Instructions: ED Rib Contusion or Minor Fracture Prescriptions: No Action hydrocodone-acetaminophen 1 TABLET tablet 1 - 2 tab PO Q4H PRN PRN (Reason: Pain) Qty: 12 0RF penicillin V potassium 500 MG tablet 500 mg PO 4X/DAY Qty: 40 0RF naproxen 500 MG tablet 500 mg PO BID Qty: 20 0RF dexamethasone [Decadron] 6 mg tablet 6 mg PO DAILY Qty: 10 0RF albuterol sulfate [Ventolin HFA] 90 mcg/actuation HFA aerosol inhaler 1 - 2 puff inhalation Q4H PRN PRN (Reason: Wheezing) Qty: 1 0RF Primary Care Provider: Care Physician,No Primary Referrals: [facility] [Other] - As soon as possible Print Language: Mohawk Disposition Disposition: Home, Self Care Discharge Date/Time: 09/04/24 13:35
--- NOTE | 2024-09-04 12:20 | RAD_ITS ---
PROCEDURE: RIBS UNI MIN 3V W/PA CHEST REASON FOR EXAM: Fall, with injury. TECHNIQUE: Five view left rib series to include a PA chest COMPARISON: None provided. FINDINGS: No displaced rib fractures are identified. No suspicious lytic or blastic rib lesions. Moderate degenerative changes of the visualized spine are seen. Chronic appearing wedge compression of the T12 vertebral body is noted. Of the proximal left humeral shaft, mild deformity is seen, likely due to remote healed injury. Lungs appear clear of acute disease. No pleural effusion or pneumothorax is seen. The cardiomediastinal silhouette is within the normal range for age; no evidence of cardiomegaly. If clinical concern persists, short-term follow-up imaging may be obtained to rule out a currently occult fracture. Reading Location: [id number]
[2024-09-04 13:34] VITALS: BP 129/64; PULSE 76; RESP 18; TEMP 36.7; O2SAT 99
== END 2024-09-04 13:35 | disposition home or self-care (01) ==
PROVIDERS: Emergency Provider Emergency Medicine; Visit Provider Emergency Medicine
DX: S20.20XA Contusion of thorax, unspecified, initial encounter (principal); W00.9XXA Unspecified fall due to ice and snow, initial encounter; Z86.16 Personal history of COVID-19
CPT/HCPCS: 71101; 99282